=== PATIENT | female | born 1945 | race Caucasian/White ===

== ENCOUNTER 2020-08-15 17:35 | Outpatient (CLI) | payer MEDICARE, MEDICAID, SELFPAY ==
[2020-08-15 18:11] LABS: Alanine Aminotransferase 15 U/L (0-33); Albumin Level 4.2 g/dL (3.5-5.2); Alkaline Phosphatase 244 IU/L (35-105); Anion Gap 15.1 (5-19); Aspartate Amino Transferase 19 U/L (0-32); Blood Urea Nitrogen 16 mg/dL (8-23); Calcium 9.6 mg/dL (8.5-10.5); Carbon Dioxide 26 mmol/L (22-29); Chloride 102 mmol/L (98-107); Globulin 3.2 g/dL (1.3-4.6); Glucose 103 mg/dL (65-115); Osmolality Calculated 289 mOsm/kg (285-295); Potassium 4.1 mmol/L (3.5-5.1); Sodium 139 mmol/L (136-145); Total Bilirubin 0.3 mg/dL (0.15-1.2); Total Protein 7.4 g/dL (6.6-8.7)
== END 2020-08-15 17:36 | disposition home or self-care (01) ==
LOC: LAB 17:36
PROVIDERS: Family Provider Internal Medicine; PCP Nurse Practitioner; Visit Provider Internal Medicine
DX: E87.70 Fluid overload, unspecified (principal)
CPT/HCPCS: 80053

== ENCOUNTER 2021-01-04 06:17 | Inpatient (IN) | payer MEDICARE, MEDICAID, SELFPAY ==
[2021-01-04] VITALS (20 sets, daily range): BP systolic 71–124; BP diastolic 43–80; PULSE 66–98; RESP 16–21; TEMP 36.4–37.4; O2SAT 90–98; BMI 31.3
--- NOTE | 2021-01-04 06:25 | W.ED.GIBLEED ---
HPI - GI Bleed General: Chief complaint: GI Bleed Stated complaint: gi bleed Time Seen by Provider: 01/04/21 06:19 Source: EMS and old records reviewed Mode of arrival: EMS Limitations: altered mental status History of Present Illness: HPI Narrative: 75-year-old female, fpc patient with a history of advanced Alzheimer's dementia brought in by EMS after she had an episode of melanotic stool, and appeared pale and weak to the staff on duty. No reported history of GI bleed on her records. She is not on any anticoagulation. She does take meloxicam every day for arthritis. The patient is unable to provide any HPI. MD complaint: melena Associated symptoms: Reports chills Review of Systems General: Reports: ROS unobtainable due to mental status Const: Reports: chills PFSH ED PFSH: Medical History Asymptomatic COVID-19 virus infection Physical Exam Const: GENERAL APPEARANCE: lethargic, ill appearing and frail appearing; not diaphoretic NUTRITIONAL APPEARANCE: obese ORIENTATION/CONSCIOUSNESS: Yes awake and Yes lethargic; not oriented to person, not oriented to place and not oriented to time HENMT: COMMON NORMALS: normocephalic and atraumatic HEAD & SCALP: normocephalic and atraumatic FACE & SINUS: normal facial exam and face symmetric Eye: COMMON NORMALS: Equal, round and reactive pupils present, EOMs intact bilaterally and no scleral icterus CONJUNCTIVA: Yes conjunctival abnormal positive bilateral pallor PUPIL: Yes Equal, round and reactive pupils present Neck/C-Spine: COMMON NORMALS: full ROM and no lymphadenopathy Resp: COMMON NORMALS: normal respiratory effort and No use of accessory muscles EFFORT & INSPECTION: No tachypneic and No respiratory distress Cardio: COMMON NORMALS: regular rate, regular rhythm, S1 normal heart sound present and S2 normal heart sound present RATE: regular rate RHYTHM: regular rhythm HEART SOUNDS: S1 normal heart sound present and S2 normal heart sound present GI: COMMON NORMALS: Soft to palpation INSPECTION: No Abdominal wall edema, No Anasarca and No abdominal distension AUSCULTATION: Yes Hyperactive bowel sounds present PALPATION: Yes Soft to palpation, No Tenderness to palpation present (GI), No Guarding due to palpation present (GI) and No Rigid due to palpation Extremity: COMMON NORMALS: no clubbing, cyanosis or edema Neuro: SENSORIUM/ORIENTATION: No oriented to person, No oriented to place, No oriented to time and Yes lethargic Skin: COMMON NORMALS: no rashes or lesions noted and no wounds GENERAL SKIN EXAM: no rashes or lesions noted Course Vital Signs: Vital signs: Vital Signs Temperature 98.9 F 01/04/21 10:53 Pulse Rate 72 01/04/21 10:53 Respiratory Rate 16 01/04/21 10:53 Blood Pressure 106/43 01/04/21 10:53 Pulse Oximetry 95 01/04/21 10:53 MDM - GI Bleed MDM Narrative: Medical decision making narrative: 75-year-old female with melena, acute anemia requiring transfusion. Hemoglobin 5.5, hematocrit 17.8. INR normal. Small amount of grossly melanotic stool noted on exam. Initially she was hypotensive, 80s/ 50s, with a normal heart rate. Improved a little with first fluid bolus. Started IV Protonix, TXA, FFP, and blood transfusion?2 units Her urine suggested acute urinary tract infection although it may be somewhat contaminated. Will give a dose of IV Rocephin. Discussed the case with Dr. Thakur, she accepts the admission. Most recent blood pressure 106/43, heart rate 80, O2 sats 95% on room air. Differential Diagnosis: GI bleed differential diagnosis: Likely gastritis, Upper gastrointestinal hemorrhage and Lower gastrointestinal hemorrhage Medical Records: Attestation: I reviewed the patient's medical records. Lab Data: Attestation: I reviewed the patient's lab results. Labs: Lab Results 01/04/21 01/04/21 01/04/21 Range/Units 06:50 06:50 06:50 WBC 6.6 (4.0-10.0) 10^3/ uL RBC 1.69 L (4.1-5.3) 10^6/u L Hgb 5.5 L* (11.5-15.3) g/dL Hct 17.8 L* (37.0-47.0) % MCV 105.3 H (81-99) fL MCH 32.5 (28.0-34.0) pg MCHC 30.9 (30.0-36.0) g/dL RDW 16.5 H (12.1-15.1) % Plt Count 202 (130-400) 10^3/c mm MPV 11.1 H (7.4-10.4) fL Neut % (Auto) 79.4 % Lymph % (Auto) 14.0 % [place] % (Auto) 5.3 % Eos % (Auto) 0.2 % Baso % (Auto) 0.3 % Neut # (Auto) 5.21 (1.8-7.7) 10^3/u L Lymph # (Auto) 0.9 (0.8-4.8) 10^3/u L [place] # (Auto) 0.4 (0.2-0.9) 10^3/u L Eos # (Auto) 0.0 (0.0-0.8) 10^3/u L Baso # (Auto) 0.0 (0.0-0.1) 10^3/u L Nucleated RBC % (a uto) 0 % Nucleated RBCs # 0.0 /100WBC PT 15.20 H (12.1-14.9) SECO NDS INR 1.16 (0.8-1.2) Sodium 139 (136-145) mmol/L Potassium 4.7 (3.5-5.1) mmol/L Chloride 105 (98-107) mmol/L Carbon Dioxide 25 (22-29) mmol/L Anion Gap 13.7 (5-19) BUN 63 H (8-23) mg/dL Creatinine 0.6 (0.5-0.9) mg/dL GFR Calculation Not Reportable Glucose 142 H (65-115) mg/dL Calculated Osmolal ity 308 H (285-295) mOsm/k g Calcium 7.6 L (8.5-10.5) mg/dL Total Bilirubin 0.2 (0.15-1.2) mg/dL AST 10 (0-32) U/L ALT 8 (0-33) U/L Alkaline Phosphata se 121 H (35-105) IU/L NT-Pro-B Natriuret Pep 192 (0-450) pg/mL Total Protein 5.3 L (6.6-8.7) g/dL Albumin 2.8 L (3.5-5.2) g/dL Globulin 2.5 (1.3-4.6) g/dL Urine Color (Yellow) Urine Appearance (CLEAR) Urine pH (5-7) Ur Specific Gravit y (1.005-1.030) Urine Protein (Negative) Urine Glucose (UA) (Normal) Urine Ketones (Negative) Urine Blood (Negative) Urine Nitrate (Negative) Urine Bilirubin (Negative) Urine Urobilinogen (Negative) mg/dL Ur Leukocyte Ayla ase (Negative) Urine RBC (0-2) /hpf Urine WBC (0-5) /hpf Ur Squamous Epith Cells (0-5) /hpf Amorphous Sediment Urine Bacteria (NONE) /hpf Blood Type Rho(D) Type Antibody Screen Crossmatch 01/04/21 01/04/21 Range/Units 07:18 07:45 WBC (4.0-10.0) 10^3/ uL RBC (4.1-5.3) 10^6/u L Hgb (11.5-15.3) g/dL Hct (37.0-47.0) % MCV (81-99) fL MCH (28.0-34.0) pg MCHC (30.0-36.0) g/dL RDW (12.1-15.1) % Plt Count (130-400) 10^3/c mm MPV (7.4-10.4) fL Neut % (Auto) % Lymph % (Auto) % [place] % (Auto) % Eos % (Auto) % Baso % (Auto) % Neut # (Auto) (1.8-7.7) 10^3/u L Lymph # (Auto) (0.8-4.8) 10^3/u L [place] # (Auto) (0.2-0.9) 10^3/u L Eos # (Auto) (0.0-0.8) 10^3/u L Baso # (Auto) (0.0-0.1) 10^3/u L Nucleated RBC % (a uto) % Nucleated RBCs # /100WBC PT (12.1-14.9) SECO NDS INR (0.8-1.2) Sodium (136-145) mmol/L Potassium (3.5-5.1) mmol/L Chloride (98-107) mmol/L Carbon Dioxide (22-29) mmol/L Anion Gap (5-19) BUN (8-23) mg/dL Creatinine (0.5-0.9) mg/dL GFR Calculation Glucose (65-115) mg/dL Calculated Osmolal ity (285-295) mOsm/k g Calcium (8.5-10.5) mg/dL Total Bilirubin (0.15-1.2) mg/dL AST (0-32) U/L ALT (0-33) U/L Alkaline Phosphata se (35-105) IU/L NT-Pro-B Natriuret Pep (0-450) pg/mL Total Protein (6.6-8.7) g/dL Albumin (3.5-5.2) g/dL Globulin (1.3-4.6) g/dL Urine Color Straw (Yellow) Urine Appearance Sl hazy (CLEAR) Urine pH 5 (5-7) Ur Specific Gravit y 1.010 (1.005-1.030) Urine Protein Neg (Negative) Urine Glucose (UA) Norm (Normal) Urine Ketones Negative (Negative) Urine Blood 2+ H (Negative) Urine Nitrate Positive H (Negative) Urine Bilirubin Neg (Negative) Urine Urobilinogen Norm (Negative) mg/dL Ur Leukocyte Ayla ase Negative (Negative) Urine RBC 5-10 H (0-2) /hpf Urine WBC 15-25 H (0-5) /hpf Ur Squamous Epith Cells 5-10 H (0-5) /hpf Amorphous Sediment Not Reportable Urine Bacteria 3+ H (NONE) /hpf Blood Type A Positive Rho(D) Type Positive / 4+ Antibody Screen Negative Crossmatch See Detail Discharge Plan Discharge Patient Disposition: Admitted As Inpatient Clinical Impression: Upper gastrointestinal hemorrhage, Acute UTI, Anemia requiring transfusions Condition: Stable Coding Level of Care Code ED Take Up Supervisor for [facility] Fwd Exam Comprehensive
[2021-01-04 06:55] LABS: Basophils % 0.3 %; Eosinophils % 0.2 %; Lymphocytes # 0.9 10^3/uL (0.8-4.8); Mean Corpuscular HGB Conc 30.9 g/dL (30.0-36.0); Mean Corpuscular Hemoglobin 32.5 pg (28.0-34.0); Mean Corpuscular Volume 105.3 fL (81-99); Mean Platelet Volume 11.1 fL (7.4-10.4); Monocytes # 0.4 10^3/uL (0.2-0.9); Monocytes % 5.3 %; Neutrophils # 5.21 10^3/uL (1.8-7.7); Neutrophils % 79.4 %; Nucleated Red Blood Cells % 0 %; Platelet Count 202 10^3/cmm (130-400); Red Blood Count 1.69 10^6/uL (4.1-5.3); Red Cell Distribution Width 16.5 % (12.1-15.1); White Blood Count 6.6 10^3/uL (4.0-10.0)
[2021-01-04] MEDS: sodium chloride 0.9% 1,000 ML 50 ML IV (06:57)
[2021-01-04] MEDS: FUROsemide 10 mg/mL SDV 4mL 20 MG IVP (06:57)
[2021-01-04] MEDS: pantoprazole 40 mg SDV IVP ×2 (06:58→22:19)
[2021-01-04 07:02] LABS: INR 1.16 (0.8-1.2)
[2021-01-04 07:06] LABS: Hematocrit 17.8 % (37.0-47.0); Hemoglobin 5.5 g/dL (11.5-15.3)
[2021-01-04 07:16] LABS: Alanine Aminotransferase 8 U/L (0-33); Albumin Level 2.8 g/dL (3.5-5.2); Alkaline Phosphatase 121 IU/L (35-105); Anion Gap 13.7 (5-19); Aspartate Amino Transferase 10 U/L (0-32); Blood Urea Nitrogen 63 mg/dL (8-23); Calcium 7.6 mg/dL (8.5-10.5); Carbon Dioxide 25 mmol/L (22-29); Chloride 105 mmol/L (98-107); Globulin 2.5 g/dL (1.3-4.6); Glucose 142 mg/dL (65-115); NT Pro B Type Natriuretic Pept 192 pg/mL (0-450); Osmolality Calculated 308 mOsm/kg (285-295); Potassium 4.7 mmol/L (3.5-5.1); Sodium 139 mmol/L (136-145); Total Bilirubin 0.2 mg/dL (0.15-1.2); Total Protein 5.3 g/dL (6.6-8.7)
--- NOTE | 2021-01-04 07:20 | PC.NURSE ---
Type and cross submitted to lab
--- NOTE | 2021-01-04 08:12 | CT_ITS ---
WS: [id number] CT ABDOMEN PELVIS TECHNIQUE: Contrast-enhanced CT of the abdomen and pelvis with coronal and sagittal reformatted image s. CLINICAL INFORMATION: GI bleed, COMPARISON: None. DLP: 1857.[address] scans at [facility] use at least one of these dose optimization techniques: automat ed exposure control; mA and/or kV adjustment per patient size (includes targeted exams where dose is matched to clinical indication); or iterative reconstruction. FINDINGS: Mild diffuse fatty infiltration of the liver. Normal gallbladder. Normal portal vein and splenic vein . Low-attenuation left adrenal lesion likely adenoma measuring 2.1 CM. Small right adrenal nodule lik jenniffer adenoma measuring 8 mm. Slight atelectasis in the lung bases. Splenic granulomas. Normal GE junct ion. Small splenule. Bilateral renal cortical atrophy. No hydronephrosis. Small bilateral renal cysts . Fatty atrophy of the pancreas. Normal caliber abdominal aorta. Normal sigmoid colon. No evidence of high-grade small or large bowel obstruction. No free fluid in th e abdomen or pelvis. Wide mouth ventral abdominal wall hernia containing omental fat. No herniated dorina wel. No adenopathy in the abdomen or pelvis. Chronic anterior wedging at L1-2. CT/CT abdomen pelvis w con* [id number] IMPRESSION: 1. Mild diffuse fatty infiltration liver. 2. Normal sigmoid colon. No evidence of high-grade small or large obstruction. 3. No free fluid in the abdomen or pelvis. 4. Bilateral adrenal lesions larger on the left measuring 2.1 cm likely adenom a. 5. Bilateral renal cortical atrophy with small bilateral renal cysts. 6. No hydronephrosis in either kidney. 7. [place] ventral abdominal wall hernia containing omental fat. No herniate d bowel. Attempted notification Day Sheridan MD at 01/04/2021 9:20 AM.
[2021-01-04] MEDS: iohexol 300 mg/mL 100 mL Btl IV (08:36)
[2021-01-04 08:40] LABS: Add Urine Microscopic? YES; Bilirubin Urine Neg (Negative); Blood Urine 2+ (Negative); Glucose Urine UA Norm (Normal); Ketones Urine Negative (Negative); Leukocyte Esterase Urine Negative (Negative); Nitrate Urine Positive (Negative); Protein Urine Neg (Negative); Urine Appearance SL Hazy (CLEAR); Urine Color Straw (Yellow); Urobilinogen Urine Norm (Negative); pH Urine 5 (5-7)
[2021-01-04 08:41] LABS: Add Urine Culture? Yes; Bacteria Urine 3+ /hpf; WBC Urine 15-25 /hpf (0-5)
--- NOTE | 2021-01-04 09:16 | PC.NURSE ---
unable to scan plasma due to A not on label. Per Brisa2 override, plasma is correct for patient.
--- NOTE | 2021-01-04 12:24 | PM.HP ---
Providers/Chief Complaint Admitting Physician: Hannah Thakur MD Primary Care Provider: Ramsey David MD Chief Complaint: gi bleed History of Present Illness Linda Hughes is a 75 year old female with a past medical history as outlined below, longterm resident, advanced dementia, nonverbal at baseline, sent today from [facility] due to concern for GI bleed. Today patient was noted to have melanotic bowel movement. History is obtained by talking to the longterm nurse. She apparently also had a melanotic bowel movement sometime earlier this week as well. No hemoptysis. No noted complains of abdominal pain. She was sent over to the ER due to concern for GI bleed, hemoglobin here was noted to be 5.5 which is new. Patient unable to participate in any history is as a result of being nonverbal and advanced dementia. Review of home medication shows patient is on meloxicam daily. She has thus far received 1 unit of Ranexa, 40 mg of IV Protonix, 1 L of IV fluid, 1 unit of FFP and 2 units of packed red blood cell transfusion has been ordered. Blood pressure is systolic between 90-100, at longterm her systolic usually ranged between 100-1 25. She has been vaccinated for COVID-19, completed series 1 month ago., Not tested for COVID-19 routinely in the last 2 months. Review of system is otherwise unavailable due to dementia.She had covid 19 infection in August 2020, reportedly asymptomatic. Review of Systems General: Reports: ROS unobtainable due to medical condition Medications/Allergies Home Medications Medication Instructions Recorded Confirmed Last Taken Type acetaminophen 500 mg tablet 500 mg PO Q4H PRN tab 02/14/20 01/04/21 Unknown History bismuth subsalicylate 262 mg/15 mL 524 mg PO Q30M PRN 02/14/20 01/04/21 Unknown History oral suspension bismuth subsalicylate 262 mg/15 mL 524 mg PO Q30M PRN 02/14/20 01/04/21 Unknown History oral suspension cholecalciferol (vitamin D3) 1,250 1,250 mcg PO Q14D 02/14/20 01/04/21 Unknown History mcg (50,000 unit) capsule furosemide 40 mg tablet 40 mg PO DAILY@0800 02/14/20 01/04/21 Unknown History mecobalamin (vitamin B12) 1,000 1,000 mcg PO Q30D 02/14/20 01/04/21 Unknown History mcg chewable tablet melatonin 3 mg capsule 3 mg PO BEDTIME@1999 cap 02/14/20 01/04/21 Unknown History meloxicam 15 mg tablet 15 mg PO DAILY@0800 02/14/20 01/04/21 Unknown History memantine 10 mg tablet 10 mg PO BID@08,199902/14/20 01/04/21 Unknown History phenobarbital 64.8 mg tablet 64.8 mg PO TID 02/14/20 01/04/21 Unknown History potassium chloride 10 mEq 10 meq PO DAILY@0800 02/14/20 01/04/21 Unknown History capsule,extended release sertraline 50 mg tablet 50 mg PO DAILY@199902/14/20 01/04/21 Unknown History folic acid 1 mg PO BID@0800,199901/04/21 01/04/21 Unknown History Allergies Allergy/AdvReac Type Severity Reaction Status Date / Time lamotrigine Allergy Unknown Verified 01/04/21 10:58 primidone Allergy Unknown Verified 01/04/21 10:58 PFSH Acute PFSH: Medical History Alzheimer's dementia Asymptomatic COVID-19 virus infection Essential hypertension Social History (Updated 01/04/21 @ 12:29 by Hannah Thakur MD) Smoking and tobacco status: unknown if ever smoked Vitals/I&O/Wt Last Vital Signs Temp 98.7 F 01/04/21 11:37 Pulse 83 01/04/21 11:37 Resp 17 01/04/21 11:37 BP 97/46 01/04/21 11:37 Pulse Ox 97 01/04/21 11:37 01/03/21 01/04/21 01/04/21 22:59 06:59 14:59 Intake Total 205 / 205 Balance 205 / 205 Weight last 48 hrs Weight 90.718 kg Physical Exam Narrative: EXAM NARRATIVE: GEN: Asleep currently, non verbal CVS: S1S2 N RS: CTA B/L anteriorly Abd: Soft, nt/nd , bs+ CLINICAL INFORMATICIST: no focal neuro motor deficits grossly Data : 01/04/21 06:50 01/04/21 06:50 A&P Assessment and plan (1) Upper gastrointestinal hemorrhage: Hb 5.5, acute drop from previous Ordered for 2 units PRBC, recheck Hb after transfusion received 1 unit FFP and tranexa in ER start protonix 40mg IVP q12h General surgery consult with Dr. Mcneil placed from ER Status: Acute (2) Acute UTI: emprically on CTX due to positive UA, urine cx pending Status: Acute (3) Anemia requiring transfusions: 2 units PRBC ordered recheck H7H posts tranfusion and then q6h Status: Acute (4) Alzheimer's dementia: non verbal at baseline Status: Acute Qualifiers: Alzheimer's disease onset: unspecified onset Dementia behavioral disturbance: without behavioral disturbance Qualified Code(s): G30.9 - Alzheimer's disease, unspecified; F02.80 - Dementia in other diseases classified elsewhere without behavioral disturbance Additional A&P Information Above plan discussed with daughter who is at bedside, okay for UGIE if needed DNR/DNI Dispo: return to SNF DVt ppx: Scds Attestations Medical Necessity Statement*: UGI bleed, acute anemia requiringtransfusion, anticipate >2midnight admission Coding Level of Care Code Acute Health Informatics Specialist for [facility] Fwd Diagnoses Upper gastrointestinal hemorrhage K92.2 Acute UTI N39.0 Anemia requiring transfusions D64.9 Alzheimer's dementia G30.9; F02.80 Alzheimer's disease onset: unspecified onset Dementia behavioral disturbance: without behavioral disturbance
[2021-01-04] MEDS: cefTRIAXone 1,000 MG in sodium chloride 0.9% (plus) 50 ML 100 MG IV (14:37)
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
--- NOTE | 2021-01-04 19:37 | PC.NURSE ---
Patient is a resident at [facility]. Patient is unable to give any information. Patient has dementia and is bed bound and unable to follow commands. Assessment questions were completed by patient's daughter and power of lead oxide mill tender Lulu. Patient is incontinent of bowel and bladder. Report to Martine MURRAY at this time.
[2021-01-04 19:52] LABS: Hematocrit 21.2 % (37.0-47.0); Hemoglobin 6.7 g/dL (11.5-15.3)
[2021-01-04] MEDS: PHENobarbital 32.4 mg Tablet 64.8 MG PO (21:58)
[2021-01-04] MEDS: memantine 5 mg tablet 10 MG PO (21:58)
[2021-01-04] MEDS: sertraline 50 mg Tablet PO (21:58)
[2021-01-04] MEDS: folic acid 1 mg Tablet PO (21:58)
[2021-01-05] VITALS (21 sets, daily range): BP systolic 89–120; BP diastolic 47–72; PULSE 58–89; RESP 16–18; TEMP 36.6–38.2; O2SAT 92–99
[2021-01-05] MEDS: acetaminophen 325 mg Tablet 650 MG PO (01:25)
[2021-01-05] MEDS: diphenhydrAMINE 50 mg Capsule PO (01:25)
[2021-01-05] MEDS: sodium chloride 0.9% (100 ml) 100 ML (04:47)
[2021-01-05] MEDS: sodium chloride 0.9% 250 ML 999 ML IV (04:48)
--- NOTE | 2021-01-05 07:30 | PC.NURSE ---
Patient is NPO for a EGD this morning.
[2021-01-05 08:31] LABS: Basophils % 0.7 %; Eosinophils # 0.1 10^3/uL (0.0-0.8); Eosinophils % 1.1 %; Hematocrit 21.2 % (37.0-47.0); Hemoglobin 6.9 g/dL (11.5-15.3); Lymphocytes # 1.3 10^3/uL (0.8-4.8); Lymphocytes % 29.8 %; Mean Corpuscular HGB Conc 32.5 g/dL (30.0-36.0); Mean Corpuscular Volume 101.4 fL (81-99); Monocytes # 0.4 10^3/uL (0.2-0.9); Neutrophils # 2.62 10^3/uL (1.8-7.7); Neutrophils % 58.7 %; Nucleated Red Blood Cells % 0 %; Platelet Count 171 10^3/cmm (130-400); Red Blood Count 2.09 10^6/uL (4.1-5.3); White Blood Count 4.5 10^3/uL (4.0-10.0)
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
[2021-01-05 08:49] LABS: Alanine Aminotransferase 10 U/L (0-33); Albumin Level 2.9 g/dL (3.5-5.2); Alkaline Phosphatase 113 IU/L (35-105); Anion Gap 12.3 (5-19); Aspartate Amino Transferase 19 U/L (0-32); Blood Urea Nitrogen 33 mg/dL (8-23); Calcium 8.1 mg/dL (8.5-10.5); Carbon Dioxide 26 mmol/L (22-29); Chloride 111 mmol/L (98-107); Globulin 2.5 g/dL (1.3-4.6); Glucose 94 mg/dL (65-115); Osmolality Calculated 307 mOsm/kg (285-295); Potassium 4.3 mmol/L (3.5-5.1); Sodium 145 mmol/L (136-145); Total Bilirubin 0.3 mg/dL (0.15-1.2); Total Protein 5.4 g/dL (6.6-8.7)
--- NOTE | 2021-01-05 09:22 | PC.NURSE ---
Patient to GI Lab at this time.
[2021-01-05] MEDS: sodium chloride 0.9% 1,000 ML 30 ML IV (09:27)
--- NOTE | 2021-01-05 09:31 | P.PN_ITS ---
Subjective Subjective: Interval history: No reported events overnight. The patient remains essentially nonverbal. Vitals/I&O/Wt Last Vital Signs Temp 98.9 F 01/05/21 07:21 Pulse 60 01/05/21 08:02 Resp 17 01/05/21 07:21 BP 96/60 01/05/21 07:55 Pulse Ox 93 01/05/21 08:02 01/04/21 01/05/21 01/05/21 22:59 06:59 14:59 Intake Total 2035 Balance 2035 Weight last 48 hrs Weight 200 lb Physical Exam Narrative: EXAM NARRATIVE: Abdomen remains soft. The patient's ventral hernia adjacent to the umbilicus remains nontender but nonreducible. Data : 01/05/21 08:20 01/05/21 08:20 Micro: Microbiology 01/04/21 07:45 Urine Culture - Preliminary Urine,Clean Catch Gram Negative Rods A&P Assessment and plan (1) Melena: The patient has been reported to have at least 2 melanotic stools over the past several days. Status: Acute (2) Anemia requiring transfusions: Patient's hemoglobin level is improved following transfusions. EGD this morning. Status: Acute (3) NSAID long-term use: The patient reportedly had been taking meloxicam daily. Status: Acute (4) Incarcerated ventral hernia: It does not appear that this hernia adjacent to the umbilicus is symptomatic for the patient. My understanding is the daughter does not really want to proceed with any unnecessary procedures for her. It seems that it will be a reasonable approach to just watch this for now. Status: Acute Attestations Medical Necessity Statement*: See admitting service's notation. 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
--- NOTE | 2021-01-05 09:45 | ANE.PACU2 ---
Inpatient post-anesthesia follow up: Airway intact: Yes Vital signs: Temperature 98.9 F Pulse Rate [Monito r] 82 Pulse Rate 60 Respiratory Rate 17 Blood Pressure [Ri ght Arm] 71/58 Blood Pressure 96/60 Pulse Oximetry 93 Oxygen Delivery Me thod [ Room Air Current Rate & Del melonie] Oxygen Delivery Me thod Room Air Oxygen Flow Rate Fraction of Inspir ed Oxygen Hydration adequate: Yes Nausea and vomiting: No Pain level: 1 Mental status: Baseline
--- NOTE | 2021-01-05 10:12 | ANE.PACU2 ---
Inpatient post-anesthesia follow up: Airway intact: Yes Vital signs: Temperature 99.0 F Pulse Rate [Monito r] 82 Pulse Rate 61 Respiratory Rate 18 Blood Pressure [Ri ght Arm] 71/58 Blood Pressure 100/53 Pulse Oximetry 99 Oxygen Delivery Me thod [ Room Air Current Rate & Del melonie] Oxygen Delivery Me thod Room Air Oxygen Flow Rate 3 Fraction of Inspir ed Oxygen Hydration adequate: Yes Nausea and vomiting: No Pain level: 1 Mental status: Baseline
--- NOTE | 2021-01-05 10:24 | PC.NURSE ---
Patient returned to room at this time.
[2021-01-05] MEDS: sodium chloride 0.9% 1,000 ML 50 ML IV (16:09)
[2021-01-05] MEDS: cefTRIAXone 1,000 MG in sodium chloride 0.9% (plus) 50 ML 100 MG IV (16:13)
--- NOTE | 2021-01-05 17:33 | PC.NURSE ---
Once patient is able to eat she will be a feeder. She is unable to feed herself per her niece Lulu.
--- NOTE | 2021-01-05 17:35 | PC.NURSE ---
Per Dr. Odonnell patient should be clear liquids until breakfast the morning of 01/06/21 and then advance from there to full and then regular from there.
--- NOTE | 2021-01-05 17:38 | PM.PN ---
Subjective Subjective: Interval history: Patient sitting up in bed being fed a clear liquid diet. She answers yes no to questions. And offered to spoon for [place] ice she took the spoon in place to down. She said no to pain except with palpation of lower extremities. Medications: Reviewed: Yes Vitals/I&O/Wt Last Vital Signs Temp 98.7 F 01/05/21 15:55 Pulse 62 01/05/21 15:55 Resp 16 01/05/21 15:55 BP 114/56 01/05/21 15:55 Pulse Ox 93 01/05/21 15:55 01/05/21 01/05/21 01/05/21 06:59 14:59 22:59 Intake Total 2035 / 1 200 / 200 50 / 250 Balance 2035 200 / 200 50 / 250 Weight last 48 hrs Weight 90.718 kg Physical Exam Narrative: EXAM NARRATIVE: General patient sitting in bed smiling she is obese appears comfortable no acute distress' pale appearing Heart: Distant heart sounds no loud murmur auscultated Lungs: Clear to auscultation Abdomen: Obese soft nontender nondistended positive umbilical hernia present Extremities trace lower extremity edema. Data : 01/05/21 08:20 01/05/21 08:20 Micro: Microbiology 01/04/21 07:45 Urine Culture - Preliminary Urine,Clean Catch Gram Negative Rods A&P Assessment and plan (1) Upper gastrointestinal hemorrhage: stop NSAIDs. PPI bid for 2 months total then qday Status: Acute (2) Alzheimer's dementia: probably no longer gains benefit from memantine however may be keeping her relatively stable. Will continue Status: Acute Qualifiers: Alzheimer's disease onset: unspecified onset Dementia behavioral disturbance: without behavioral disturbance Qualified Code(s): G30.9 - Alzheimer's disease, unspecified; F02.80 - Dementia in other diseases classified elsewhere without behavioral disturbance (3) Essential hypertension: I actually do not see an antihypertensive on her home list. Status: Acute (4) NSAID long-term use: Will need to discontinue indefinetly Status: Acute (5) Anemia requiring transfusions: received 2 units PBC and 2 of plasma. stop fluids and recheck in am Status: Acute (6) Gastritis and duodenitis: as above Status: Acute (7) Acute UTI: gram negative rods. Currently on CTX. Awaiting final report. Status: Acute Attestations Medical Necessity Statement*: severe anemia Coding Level of Care Code Acute An/Syq 13 Nav/C2 Operator for g Fwd Diagnoses Upper gastrointestinal hemorrhage K92.2 Alzheimer's dementia G30.9; F02.80 Alzheimer's disease onset: unspecified onset Dementia behavioral disturbance: without behavioral disturbance Essential hypertension I10 NSAID long-term use Z79.1 Anemia requiring transfusions D64.9 Gastritis and duodenitis K29.90 Acute UTI N39.0
--- NOTE | 2021-01-05 19:40 | PC.NURSE ---
Report to lElen MURRAY at this time.
[2021-01-05] MEDS: folic acid 1 mg Tablet PO (21:06)
[2021-01-05] MEDS: memantine 5 mg tablet 10 MG PO (21:06)
[2021-01-05] MEDS: sertraline 50 mg Tablet PO (21:07)
[2021-01-05] MEDS: PHENobarbital 32.4 mg Tablet 64.8 MG PO (22:39)
[2021-01-05] MEDS: pantoprazole 40 mg SDV IVP (22:40)
[2021-01-05] MEDS: erythromycin Op Oint 1 gm 1 APPLIC EYE-LEFT (22:40)
[2021-01-06] VITALS (9 sets, daily range): BP systolic 87–123; BP diastolic 49–66; PULSE 56–94; RESP 16–18; TEMP 36.3–37.1; O2SAT 91–98
[2021-01-06 06:56] LABS: Basophils % 0.8 %; Eosinophils # 0.1 10^3/uL (0.0-0.8); Eosinophils % 1.9 %; Hematocrit 23.5 % (37.0-47.0); Hemoglobin 7.5 g/dL (11.5-15.3); Lymphocytes # 1.3 10^3/uL (0.8-4.8); Lymphocytes % 27.8 %; Mean Corpuscular HGB Conc 31.9 g/dL (30.0-36.0); Mean Corpuscular Hemoglobin 33.3 pg (28.0-34.0); Mean Corpuscular Volume 104.4 fL (81-99); Monocytes # 0.5 10^3/uL (0.2-0.9); Monocytes % 10.2 %; Neutrophils # 2.82 10^3/uL (1.8-7.7); Neutrophils % 58.5 %; Nucleated Red Blood Cells % 0.4 %; Platelet Count 177 10^3/cmm (130-400); Red Blood Count 2.25 10^6/uL (4.1-5.3); Red Cell Distribution Width 17.8 % (12.1-15.1); White Blood Count 4.8 10^3/uL (4.0-10.0)
[2021-01-06 07:36] LABS: Anion Gap 11.6 (5-19); Blood Urea Nitrogen 22 mg/dL (8-23); Calcium 8.3 mg/dL (8.5-10.5); Carbon Dioxide 25 mmol/L (22-29); Chloride 110 mmol/L (98-107); Glucose 95 mg/dL (65-115); Osmolality Calculated 299 mOsm/kg (285-295); Potassium 3.6 mmol/L (3.5-5.1); Sodium 143 mmol/L (136-145)
[2021-01-06] MEDS: memantine 5 mg tablet 10 MG PO ×2 (08:48→21:17)
[2021-01-06] MEDS: folic acid 1 mg Tablet PO ×2 (08:48→21:18)
[2021-01-06] MEDS: PHENobarbital 32.4 mg Tablet 64.8 MG PO ×3 (08:48→21:18)
[2021-01-06] MEDS: erythromycin Op Oint 1 gm 1 APPLIC EYE-LEFT ×4 (08:49→22:07)
[2021-01-06] MEDS: pantoprazole 40 mg SDV IVP ×2 (09:37→22:06)
--- NOTE | 2021-01-06 12:23 | PC.NURSE ---
1:1 1:1 at pts side to prevent pulling of any lines
[2021-01-06] MEDS: cefTRIAXone 1,000 MG in sodium chloride 0.9% (plus) 50 ML 100 MG IV (14:15)
--- NOTE | 2021-01-06 18:43 | P.DS_ITS ---
Discharge Providers Date of Admission: 01/04/21 10:42 Date of Discharge: January 06, 2021 Attending Provider at Admission: Hannah Thakur MD Attending Provider at Discharge: Kartik Odonnell DO Primary Care Provider: Ramsey David MD Diagnoses at Discharge Discharge Diagnosis (1) Upper gastrointestinal hemorrhage: Status: Acute (2) Alzheimer's dementia: Status: Acute Qualifiers: Alzheimer's disease onset: unspecified onset Dementia behavioral disturbance: without behavioral disturbance Qualified Code(s): G30.9 - Alzheimer's disease, unspecified; F02.80 - Dementia in other diseases classified elsewhere without behavioral disturbance (3) Essential hypertension: Status: Acute (4) NSAID long-term use: Status: Acute (5) Anemia requiring transfusions: Status: Acute (6) Gastritis and duodenitis: Status: Acute (7) Acute UTI: Status: Acute Reason for Visit Reason for Visit: gi bleed Hospital Course Hospital Course Patient was admitted due to GI bleed. Was found to have gastritis and duodenitis. She required transfusions. After EGD she was started on a clear liquid diet did well. Hemoglobin has increased to 7.5. She is to be continued on proton pump inhibitors for 2 months at twice a day dosing. It is believed that her chronic NSAIDs are the culprit to this type of bleeding. Her meloxicam was discontinued and should not be restarted. After 2 months of therapy with PPIs they can be discontinued as long as no NSAIDs are given. Physical Exam Narrative: EXAM NARRATIVE: General patient sitting in bed smiling she is obese appears comfortable no acute distress' pale appearing Heart: Distant heart sounds no loud murmur auscultated Lungs: Clear to auscultation Abdomen: Obese soft nontender nondistended positive umbilical hernia present Extremities trace lower extremity edema. Discharge Data Data Completed and Pending: Completed Studies During Hospitalization Category Date Time Status CT abdomen pelvis w con* [id number] Urge nt Cat Scan 01/04/21 08:12 Completed Pending at discharge Category Date Time Status Complete Blood Co unt w/Auto AM LABS Lab 01/07/21 04:00 Ordered H. Pylori / GRACE T est Routine Lab 01/05/21 09:45 Ordered Labs from last 24 hours 01/06/21 01/06/21 06:40 06:40 WBC 4.8 RBC 2.25 L Hgb 7.5 L Hct 23.5 L MCV 104.4 H MCH 33.3 MCHC 31.9 RDW 17.8 H Plt Count 177 MPV 11.0 H Neut % (Auto) 58.5 Lymph % (Auto) 27.8 [place] % (Auto) 10.2 Eos % (Auto) 1.9 Baso % (Auto) 0.8 Neut # (Auto) 2.82 Lymph # (Auto) 1.3 [place] # (Auto) 0.5 Eos # (Auto) 0.1 Baso # (Auto) 0.0 Nucleated RBC % (a uto) 0.4 Nucleated RBCs # 0.0 Sodium 143 Potassium 3.6 Chloride 110 H Carbon Dioxide 25 Anion Gap 11.6 BUN 22 Creatinine 0.4 L GFR Calculation Not Reportable Glucose 95 Calculated Osmolal ity 299 H Calcium 8.3 L Vitals: Last Vital Signs Temp 97.9 F 01/06/21 15:30 Pulse 67 01/06/21 15:30 Resp 17 01/06/21 15:30 BP 110/65 01/06/21 15:30 Pulse Ox 93 01/06/21 15:30 Discharge Plan Discharge Patient Disposition: Home Condition: Stable Prescriptions: New erythromycin 5 mg/gram (0.5 %) Ointment 1 applic eye-left QID 10 Days RF: 0 amoxicillin-pot clavulanate [Augmentin] 500-125 mg tablet 1 tab PO BID Qty: 10 RF: 0 pantoprazole [Protonix] 40 mg tablet,delayed release (DR/EC) 40 mg PO BID Qty: 60 RF: 0 Continued meloxicam 15 mg tablet 15 mg PO DAILY@0800 RF: 0 potassium chloride 10 mEq capsule, extended release 10 meq PO DAILY@0800 RF: 0 furosemide [Lasix] 40 mg tablet 40 mg PO DAILY@0800 RF: 0 memantine [Namenda] 10 mg tablet 10 mg PO BID@799,1999 RF: 0 acetaminophen [Tylenol Extra Strength] 500 mg tablet 500 mg PO Q4H PRN (Reason: Pain) RF: 0 phenobarbital 64.8 mg tablet 64.8 mg PO TID RF: 0 sertraline [Zoloft] 50 mg tablet 50 mg PO DAILY@1999 RF: 0 melatonin 3 mg capsule 3 mg PO BEDTIME@1999 RF: 0 cholecalciferol (vitamin D3) 1,250 mcg (50,000 unit) capsule 1,250 mcg PO Q14D RF: 0 mecobalamin (vitamin B12) 1,000 mcg tablet,chewable 1,000 mcg PO Q30D RF: 0 bismuth subsalicylate [Bismatrol] 262 mg/15 mL suspension 524 mg PO Q30M PRN (Reason: Nausea) RF: 0 bismuth subsalicylate [Kaopectate (bismuth subsalicy)] 262 mg/15 mL suspension 524 mg PO Q30M PRN (Reason: loose stools) RF: 0 folic acid 1 mg Tablet 1 mg PO BID@0800,1999 RF: 0 Discharge Orders: Discharge Order (Routine); Ordered 01/06/21 Ordered By: Kartik Odonnell Referrals: Ramsey David MD [Primary Care Provider] - Discharge Diet: Advance as tolerated Discharge Activity: Resume usual activity and Increase activity as tolerated Patient Instructions: GI Discharge Instructions Discharge Attestations Time Spent in Discharge Care*: less than 30 min Quality Metrics Clinical Quality Measures During this hospital stay, did patient experience: None Coding Level of Care Code Acute [facility] note Diagnoses Upper gastrointestinal hemorrhage K92.2 Alzheimer's dementia G30.9; F02.80 Alzheimer's disease onset: unspecified onset Dementia behavioral disturbance: without behavioral disturbance Essential hypertension I10 NSAID long-term use Z79.1 Anemia requiring transfusions D64.9 Gastritis and duodenitis K29.90 Acute UTI N39.0
[2021-01-06] MEDS: sertraline 50 mg Tablet PO (21:18)
[2021-01-07] VITALS: BP 103/69; PULSE 59; RESP 16; TEMP 37.1; O2SAT 91
[2021-01-07 04:00] VITALS: BP 109/63; PULSE 56; RESP 17; TEMP 36.4; O2SAT 92
[2021-01-07 07:17] LABS: Basophils % 0.6 %; Eosinophils # 0.1 10^3/uL (0.0-0.8); Eosinophils % 1.4 %; Hematocrit 26.3 % (37.0-47.0); Hemoglobin 7.4 g/dL (11.5-15.3); Lymphocytes # 0.9 10^3/uL (0.8-4.8); Lymphocytes % 18.2 %; Mean Corpuscular HGB Conc 28.1 g/dL (30.0-36.0); Mean Corpuscular Volume 117.4 fL (81-99); Mean Platelet Volume 11.1 fL (7.4-10.4); Monocytes # 0.5 10^3/uL (0.2-0.9); Monocytes % 8.8 %; Neutrophils % 70.6 %; Nucleated Red Blood Cells % 0 %; Platelet Count 180 10^3/cmm (130-400); Red Blood Count 2.24 10^6/uL (4.1-5.3); Red Cell Distribution Width 17.9 % (12.1-15.1); White Blood Count 5.1 10^3/uL (4.0-10.0)
[2021-01-07 07:20] VITALS: BP 116/65; PULSE 62; RESP 18; TEMP 36.5; O2SAT 94
--- NOTE | 2021-01-07 08:11 | DCPLANNER ---
Phoned Erlin; Lulu RiveraFranck [phone] to discuss the IM and to ask if she knew pt was being d/c'd. She does as she called yesterday to talk with Nursing. She is satisfied that pt is ready for d/c.
[2021-01-07] MEDS: memantine 5 mg tablet 10 MG PO (08:58)
[2021-01-07] MEDS: folic acid 1 mg Tablet PO (08:58)
[2021-01-07] MEDS: pantoprazole 40 mg SDV IVP (08:58)
[2021-01-07] MEDS: erythromycin Op Oint 1 gm 1 APPLIC EYE-LEFT (08:58)
[2021-01-07] MEDS: PHENobarbital 32.4 mg Tablet 64.8 MG PO (08:58)
--- NOTE | 2021-01-07 10:59 | PC.NURSE ---
Report Report called to Yolande at [facility]. SS notified and ride being set up.
[2021-01-07 12:00] VITALS: BP 109/60; PULSE 52; RESP 18; TEMP 37.1; O2SAT 95
[2021-01-07 13:19] VITALS: BP 109/60; PULSE 52; RESP 18; TEMP 37.1; O2SAT 95
[2021-01-07 13:45] LABS: H. Pylori / CLO Test Negative
== END 2021-01-07 13:19 | disposition skilled nursing facility (03) | DRG 392 ==
LOC: ER 14:20 → MEDSURG 15:59
PROVIDERS: Internal Medicine; Surgery; Admitting Provider Student in an Organized Health Care Education/Training Program; Emergency Provider Family Medicine; PCP Internal Medicine; Visit Provider Student in an Organized Health Care Education/Training Program
PROC: 0DJ08ZZ Inspection of Upper Intestinal Tract, Via Natural or Artificial Opening Endoscopic (ICD-10-PCS; CPT 43235; principal; 2021-01-05 09:00)
DX: K29.90 Gastroduodenitis, unspecified, without bleeding (principal); N39.0 Urinary tract infection, site not specified; K43.6 Other and unspecified ventral hernia with obstruction, without gangrene; T39.395A Adverse effect of other nonsteroidal anti-inflammatory drugs [NSAID], initial encounter; G30.9 Alzheimer's disease, unspecified; F02.80 Dementia in other diseases classified elsewhere, unspecified severity, without behavioral disturbance, psychotic disturbance, mood disturbance, and anxiety; Z86.16 Personal history of COVID-19; I10 Essential (primary) hypertension; D64.9 Anemia, unspecified; Z66 Do not resuscitate
CPT/HCPCS: 12345; 36415; 36430; 43239; 74177; 80048; 80053; 81001; 83880; 85014; 85018; 85025; 85610; 86850; 86900; 86920; 86927; 87077; 87086; 87186; 96365; 96367; 96375; 99291; 99292; C9113; J0696; J1940; J2704; J7030; J7040; P9016; P9017; Q0163; Q9967

== ENCOUNTER 2021-01-10 07:14 | Inpatient (IN) | payer MEDICARE, MEDICAID, SELFPAY ==
[2021-01-10] VITALS (74 sets, daily range): BP systolic 46–124; BP diastolic 37–91; PULSE 71–118; RESP 12–31; TEMP 36.2–37.1; O2SAT 81–100; BMI 30.1
--- NOTE | 2021-01-10 07:23 | ECG_ITS ---
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 Measurements Intervals Miracle Rate: 98 P: 64 OR: 155 QRS: 28 QRSD: 93 T: 33 QT: 363 QTc: 464 Interpretive Statements Atrial fibrillation with controlled ventricular response rate of 98 bpm. Diffuse nonspecific T wave changes. POSSIBLE RIGHT VENTRICULAR CONDUCTION DELAY [RSR (QR) IN V1/V2] ST DEVIATION AND MODERATE T-WAVE ABNORMALITY, CONSIDER LATERAL ISCHEMIA [-0.1+ mV T WAVE IN I/aVL/V5/V6] Compared to ECG 12/17/2017 12:13:30 No significant changes Electronically Signed On 01-10-2021 20:36:26 CDT by Rene Smiley M.D. [email or web address]
--- NOTE | 2021-01-10 07:35 | W.ED.GIBLEED ---
HPI - GI Bleed General: Chief complaint: GI Bleed Stated complaint: LOWER GI BLEED/ HYPOTENSION Time Seen by Provider: 01/10/21 07:17 History of Present Illness: HPI Narrative: This patient is a 75 year old female presenting by EMS from a [facility]. She is reported to have BRBPR starting this morning, and was very hypotensive. She was here in the hospital within the past week with an UGI - gastritis and duodenitis. She required multiple transfusions and was discharged a few days ago with a hgb of 7.5. She has dementia and is not able to provide any history. She tells me she is fine, but does admit to pain in her abdomen. She presents with an adult diaper saturated with blood. BP at the ME and for EMS was 60 systolic. Her initial BP here, after 200 mL fluid, was 83 systolic. She is a DNR. Her niece, Alesha King (sp?) [phone] is her POA per report from the ME. complaint: gross hematochezia Onset (ago): unknown Severity: severe Context: history of GI bleed Review of Systems General: Reports: ROS unobtainable due to mental status (dementia) PFS ED PFSH: Medical History Alzheimer's dementia Anemia requiring transfusions Asymptomatic COVID-19 virus infection Essential hypertension Incarcerated ventral hernia Melena NSAID long-term use Seizure disorder Upper gastrointestinal hemorrhage Surgical History Burn injury History of ankle surgery Left ankle fracture Status post wrist surgery Social History Smoking and tobacco status: never smoked Alcohol intake: never Physical Exam Const: COMMON NORMALS: no acute distress and alert EXAM LIMITATIONS: other limitations (dementia) NUTRITIONAL APPEARANCE: obese ORIENTATION/CONSCIOUSNESS: Yes awake OTHER: minimal verbalization HENMT: HEAD & SCALP: normal to inspection FACE & SINUS: normal facial exam Eye: COMMON NORMALS: conjunctivae normal (pale) GENERAL EYE: appearance normal, both eyes and all related structures Neck/C-Spine: COMMON NORMALS: supple, no meningeal signs and no JVD Chest: COMMONS NORMALS: normal inspection of the chest Resp: COMMON NORMALS: normal respiratory effort, No use of accessory muscles and clear to auscultation bilaterally AUSCULTATION: clear to auscultation bilaterally Cardio: COMMON NORMALS: no JVD, regular rate, regular rhythm and No murmurs present (Cardio) RATE: regular rate RHYTHM: regular rhythm GI: COMMON NORMALS: Soft to palpation INSPECTION: Yes central obesity and Yes other (umbilical hernia,reducible) AUSCULTATION: Yes normoactive bowel sounds PALPATION: Yes Soft to palpation, Yes Firmness to palpation present (GI), Yes Tenderness to palpation present (GI) and Yes Palpable mass present (question of a mass, lower abdomen) RECTAL EXAM: deferred OTHER: gross blood - saturated diaper Back/Pelvis: COMMON NORMALS: thoracic and lumbar spine normal to inspection Extremity: COMMON NORMALS: normal to inspection Neuro: COMMON NORMALS: moves all extremities, no focal motor deficits and no sensory deficits noted SENSORIUM/ORIENTATION: Yes alert MENINGEAL SIGNS: Yes no meningeal signs Psych: COMMON NORMALS: mental status grossly normal, cooperative and normal affect Skin: COMMON NORMALS: no rashes or lesions noted and turgor normal GENERAL SKIN EXAM: no rashes or lesions noted and turgor normal Course ED course: Patient arrived hypotensive, but awake. She smiles and is in no acute distress. Uncrossmatched units of A+ were given as her BP dropped into the 50's and she vomited bright red blood. She also was given 2 units of FFP and two more units of crossmatched blood are pending. BP is now 90 - 100 and HR is 80. Erlin is at the bedside and does feel that it would be appropriate to try to find and correct the source of bleeding. On her last admission she had an EGD, but it sounds as though only gastritis and duodenitis were seen, but not any site of bleeding that would account for this amount of blood. Erlin is her POA and is agreeable to transfer if that is recommended. She is not sure that the patient should undergo a major surgery - if that were necessary - but she also isn't ready to make that decision right now. Patient was also given calcium as her calcium was low and she will be getting more blood products. Pepcid IV given as well. Beal in place with very minimal output so far. Rectal tube in place as well. I spoke with Dr. Kwan who wants to make sure that surgery is comfortable managing her here or would recommend transfer. Reevaluation(s): Reevaluation #1: Patient's BP dropped again and her mental status decreased. The 3rd unit of blood was started and she had some improvement, but is quite unstable. Niece at bedside and in consultation with her family by phone - decided that they did not wish to have her transferred even if that were the recommendation. Dr. Leggett will see her and decide if EGD is an option - given her instability at this point. Continuing blood products and Dr. Kwan will admit to ICU. Time: 10:58 Vital Signs: Vital signs: Vital Signs Temperature 97.2 F L 01/10/21 10:10 Pulse Rate 86 01/10/21 10:30 Respiratory Rate 27 H 01/10/21 10:30 Blood Pressure 80/60 01/10/21 10:30 Pulse Oximetry 100 01/10/21 10:30 MDM - GI Bleed MDM Narrative: Medical decision making narrative: Hemorrhagic shock secondary to massive GI bleed. No blood thinner medications listed. History of recent UGI bleed and transfusions. Hypotensive. Secondary cardiac ischemia possible. Lab Data: Labs: Lab Results 01/10/21 01/10/21 01/10/21 Range/Units 07:30 07:30 07:30 WBC 7.0 (4.0-10.0) 10^3/ uL RBC 1.62 L (4.1-5.3) 10^6/u L Hgb 5.3 L* (11.5-15.3) g/dL Hct 17.7 L* (37.0-47.0) % MCV 109.3 H (81-99) fL MCH 32.7 (28.0-34.0) pg MCHC 29.9 L (30.0-36.0) g/dL RDW 18.5 H (12.1-15.1) % Plt Count 179 (130-400) 10^3/c mm MPV 12.1 H (7.4-10.4) fL Neut % (Auto) 80.1 % Lymph % (Auto) 13.5 % Clayton % (Auto) 5.0 % Eos % (Auto) 0.1 % Baso % (Auto) 0.4 % Neut # (Auto) 5.63 (1.8-7.7) 10^3/u L Lymph # (Auto) 1.0 (0.8-4.8) 10^3/u L Clayton # (Auto) 0.4 (0.2-0.9) 10^3/u L Eos # (Auto) 0.0 (0.0-0.8) 10^3/u L Baso # (Auto) 0.0 (0.0-0.1) 10^3/u L Nucleated RBC % (a uto) 0 % Nucleated RBCs # 0.0 /100WBC PT (12.1-14.9) SECO NDS INR (0.8-1.2) Sodium 143 (136-145) mmol/L Potassium 4.2 (3.5-5.1) mmol/L Chloride 112 H (98-107) mmol/L Carbon Dioxide 23 (22-29) mmol/L Anion Gap 12.2 (5-19) BUN 30 H (8-23) mg/dL Creatinine 0.7 (0.5-0.9) mg/dL GFR Calculation Not Reportable Glucose 148 H (65-115) mg/dL Calculated Osmolal ity 305 H (285-295) mOsm/k g Lactic Acid 1.8 (0.5-2.2) mmol/L Calcium 7.2 L (8.5-10.5) mg/dL Total Bilirubin 0.2 (0.15-1.2) mg/dL AST 12 (0-32) U/L ALT 11 (0-33) U/L Alkaline Phosphata se 130 H (35-105) IU/L Troponin T Baselin e (0-10) ng/L Troponin T 120 Min wilton (0-10) ng/L Delta Troponin T (0-10) ABS# Total Protein 4.6 L (6.6-8.7) g/dL Albumin 2.6 L (3.5-5.2) g/dL Globulin 2.0 (1.3-4.6) g/dL Lipase 19 (13-60) U/L Urine Color (Yellow) Urine Appearance (CLEAR) Urine pH (5-7) Ur Specific Gravit y (1.005-1.030) Urine Protein (Negative) Urine Glucose (UA) (Normal) Urine Ketones (Negative) Urine Blood (Negative) Urine Nitrate (Negative) Urine Bilirubin (Negative) Urine Urobilinogen (Negative) mg/dL Ur Leukocyte Ayla ase (Negative) Urine RBC (0-2) /hpf Urine WBC (0-5) /hpf Ur Squamous Epith Cells (0-5) /hpf Amorphous Sediment Urine Bacteria (NONE) /hpf Urine Mucus /hpf Blood Type Rho(D) Type Antibody Screen Crossmatch 01/10/21 01/10/21 01/10/21 Range/Units 07:30 07:30 08:00 WBC (4.0-10.0) 10^3/ uL RBC (4.1-5.3) 10^6/u L Hgb (11.5-15.3) g/dL Hct (37.0-47.0) % MCV (81-99) fL MCH (28.0-34.0) pg MCHC (30.0-36.0) g/dL RDW (12.1-15.1) % Plt Count (130-400) 10^3/c mm MPV (7.4-10.4) fL Neut % (Auto) % Lymph % (Auto) % Clayton % (Auto) % Eos % (Auto) % Baso % (Auto) % Neut # (Auto) (1.8-7.7) 10^3/u L Lymph # (Auto) (0.8-4.8) 10^3/u L Clayton # (Auto) (0.2-0.9) 10^3/u L Eos # (Auto) (0.0-0.8) 10^3/u L Baso # (Auto) (0.0-0.1) 10^3/u L Nucleated RBC % (a uto) % Nucleated RBCs # /100WBC PT 16.60 H (12.1-14.9) SECO NDS INR 1.29 H (0.8-1.2) Sodium (136-145) mmol/L Potassium (3.5-5.1) mmol/L Chloride (98-107) mmol/L Carbon Dioxide (22-29) mmol/L Anion Gap (5-19) BUN (8-23) mg/dL Creatinine (0.5-0.9) mg/dL GFR Calculation Glucose (65-115) mg/dL Calculated Osmolal ity (285-295) mOsm/k g Lactic Acid (0.5-2.2) mmol/L Calcium (8.5-10.5) mg/dL Total Bilirubin (0.15-1.2) mg/dL AST (0-32) U/L ALT (0-33) U/L Alkaline Phosphata se (35-105) IU/L Troponin T Baselin e 41 H (0-10) ng/L Troponin T 120 Min wilton (0-10) ng/L Delta Troponin T (0-10) ABS# Total Protein (6.6-8.7) g/dL Albumin (3.5-5.2) g/dL Globulin (1.3-4.6) g/dL Lipase (13-60) U/L Urine Color (Yellow) Urine Appearance (CLEAR) Urine pH (5-7) Ur Specific Gravit y (1.005-1.030) Urine Protein (Negative) Urine Glucose (UA) (Normal) Urine Ketones (Negative) Urine Blood (Negative) Urine Nitrate (Negative) Urine Bilirubin (Negative) Urine Urobilinogen (Negative) mg/dL Ur Leukocyte Ayla ase (Negative) Urine RBC (0-2) /hpf Urine WBC (0-5) /hpf Ur Squamous Epith Cells (0-5) /hpf Amorphous Sediment Urine Bacteria (NONE) /hpf Urine Mucus /hpf Blood Type A Positive Rho(D) Type Positive / 4+ Antibody Screen Negative Crossmatch See Detail 01/10/21 01/10/21 Range/Units 09:14 09:38 WBC (4.0-10.0) 10^3/ uL RBC (4.1-5.3) 10^6/u L Hgb (11.5-15.3) g/dL Hct (37.0-47.0) % MCV (81-99) fL MCH (28.0-34.0) pg MCHC (30.0-36.0) g/dL RDW (12.1-15.1) % Plt Count (130-400) 10^3/c mm MPV (7.4-10.4) fL Neut % (Auto) % Lymph % (Auto) % Clayton % (Auto) % Eos % (Auto) % Baso % (Auto) % Neut # (Auto) (1.8-7.7) 10^3/u L Lymph # (Auto) (0.8-4.8) 10^3/u L Clayton # (Auto) (0.2-0.9) 10^3/u L Eos # (Auto) (0.0-0.8) 10^3/u L Baso # (Auto) (0.0-0.1) 10^3/u L Nucleated RBC % (a uto) % Nucleated RBCs # /100WBC PT (12.1-14.9) SECO NDS INR (0.8-1.2) Sodium (136-145) mmol/L Potassium (3.5-5.1) mmol/L Chloride (98-107) mmol/L Carbon Dioxide (22-29) mmol/L Anion Gap (5-19) BUN (8-23) mg/dL Creatinine (0.5-0.9) mg/dL GFR Calculation Glucose (65-115) mg/dL Calculated Osmolal ity (285-295) mOsm/k g Lactic Acid (0.5-2.2) mmol/L Calcium (8.5-10.5) mg/dL Total Bilirubin (0.15-1.2) mg/dL AST (0-32) U/L ALT (0-33) U/L Alkaline Phosphata se (35-105) IU/L Troponin T Baselin e (0-10) ng/L Troponin T 120 Min wilton 32.36 H (0-10) ng/L Delta Troponin T -8.64 L (0-10) ABS# Total Protein (6.6-8.7) g/dL Albumin (3.5-5.2) g/dL Globulin (1.3-4.6) g/dL Lipase (13-60) U/L Urine Color Yellow (Yellow) Urine Appearance Cloudy (CLEAR) Urine pH 6 (5-7) Ur Specific Gravit y 1.020 (1.005-1.030) Urine Protein 1+ H (Negative) Urine Glucose (UA) Trace H (Normal) Urine Ketones 1+ H (Negative) Urine Blood Trace H (Negative) Urine Nitrate Negative (Negative) Urine Bilirubin Neg (Negative) Urine Urobilinogen Norm (Negative) mg/dL Ur Leukocyte Ayla ase Negative (Negative) Urine RBC 5-10 H (0-2) /hpf Urine WBC 0-4 H (0-5) /hpf Ur Squamous Epith Cells 25-40 H (0-5) /hpf Amorphous Sediment Not Reportable Urine Bacteria 1+ H (NONE) /hpf Urine Mucus 3+ /hpf Blood Type Rho(D) Type Antibody Screen Crossmatch EKG Data^: EKG 1: Attestation: I personally reviewed and interpreted this EKG as follows: EKG interpretation date: 01/10/21 EKG interpretation time: 07:45 Prior EKG tracings: available for review Interpretation: sinus with PACs, rate 98. ST depression lateral leads. rightward axis. Critical Care Time Critical Care Time: Critical Care Time: Yes Total Critical Care Time: 45 Attestation: This case had a high probability of a clinically significant, sudden, or life threatening deterioration of this patient's condition which required my full and direct attention, intervention and personal management. Discharge Plan Discharge Admit Provider: Adis Kwan Coding Level of Care Code ED Laser Beam Cutter for Chg Fwd Exam Comprehensive
[2021-01-10 07:55] LABS: Basophils % 0.4 %; Eosinophils % 0.1 %; Lymphocytes % 13.5 %; Mean Corpuscular HGB Conc 29.9 g/dL (30.0-36.0); Mean Corpuscular Hemoglobin 32.7 pg (28.0-34.0); Mean Corpuscular Volume 109.3 fL (81-99); Mean Platelet Volume 12.1 fL (7.4-10.4); Monocytes # 0.4 10^3/uL (0.2-0.9); Neutrophils # 5.63 10^3/uL (1.8-7.7); Neutrophils % 80.1 %; Nucleated Red Blood Cells % 0 %; Platelet Count 179 10^3/cmm (130-400); Red Blood Count 1.62 10^6/uL (4.1-5.3); Red Cell Distribution Width 18.5 % (12.1-15.1)
[2021-01-10 07:57] LABS: Hematocrit 17.7 % (37.0-47.0); Hemoglobin 5.3 g/dL (11.5-15.3)
[2021-01-10 08:15] LABS: Alanine Aminotransferase 11 U/L (0-33); Albumin Level 2.6 g/dL (3.5-5.2); Alkaline Phosphatase 130 IU/L (35-105); Aspartate Amino Transferase 12 U/L (0-32); Blood Urea Nitrogen 30 mg/dL (8-23); Calcium 7.2 mg/dL (8.5-10.5); Carbon Dioxide 23 mmol/L (22-29); Chloride 112 mmol/L (98-107); Glucose 148 mg/dL (65-115); Lipase 19 U/L (13-60); Osmolality Calculated 305 mOsm/kg (285-295); Sodium 143 mmol/L (136-145); Total Bilirubin 0.2 mg/dL (0.15-1.2); Total Protein 4.6 g/dL (6.6-8.7)
[2021-01-10 08:17] LABS: Lactic Sepsis W/Reflex 1.8 mmol/L (0.5-2.2)
[2021-01-10 08:19] LABS: Troponin(5th) Baseline 41 ng/L (0-10)
[2021-01-10 08:29] LABS: Anion Gap 12.2 (5-19); Potassium 4.2 mmol/L (3.5-5.1)
[2021-01-10 08:36] LABS: INR 1.29 (0.8-1.2)
--- NOTE | 2021-01-10 08:56 | PC.NURSE ---
1st 350ml of emergent A positive blood done at 0839. line flushed with NS after. line remains patent.
--- NOTE | 2021-01-10 09:02 | PC.NURSE ---
unable to scan 1st 2 units of A positive blood that were given because they were given emergently. when trying to scan it in it shows that our start and finish times were before issue date. 1st unit of A positive blood infusion completely at 0839. 2nd unit of A positive blood started at 0842 and done at 0856.
--- NOTE | 2021-01-10 09:23 | ECG_ITS ---
[facility] Test Date: 2021-01-10 Pat Name: Linda Hughes Department: Room: Gender: Female Pilot: : 1945 Requested By: Day Russell Order Number: [id number] Tiana MD: Rene Smiley M.D. Measurements Intervals [place] Rate: 83 P: 66 [place]: 151 QRS: 14 QRSD: 102 T: 54 QT: 375 QTc: 442 Interpretive Statements SINUS RHYTHM POSSIBLE RIGHT VENTRICULAR CONDUCTION DELAY [RSR (QR) IN V1/V2] ST DEVIATION AND MODERATE T-WAVE ABNORMALITY, CONSIDER ANTERIOR ISCHEMIA [-0.1+ mV T WAVE IN V3/V4] Compared to ECG 01/10/2021 07:36:14 No significant changes Electronically Signed On 01-10-2021 20:42:48 CDT by Rene Smiley M.D. [email or web address] Work Studychildren's hospital [id number]
[2021-01-10 09:30] LABS: Add Urine Microscopic? YES; Bacteria Urine 1+ /hpf; Bilirubin Urine Neg (Negative); Blood Urine Trace (Negative); Glucose Urine UA Trace (Normal); Ketones Urine 1+ (Negative); Leukocyte Esterase Urine Negative (Negative); Mucus Urine 3+ /hpf; Nitrate Urine Negative (Negative); Protein Urine 1+ (Negative); Squamous Epithelial Cell Urine 25-40 /hpf (0-5); Urine Appearance Cloudy (CLEAR); Urine Color Yellow (Yellow); Urobilinogen Urine Norm (Negative); WBC Urine 0-4 /hpf (0-5); pH Urine 6 (5-7)
[2021-01-10 09:31] LABS: Add Urine Culture? No
[2021-01-10] MEDS: calcium gluconate 0.1 gm/mL 10% SDV 10mL 1 GM IVP (09:38)
[2021-01-10] MEDS: famotidine 20 mg/2 mL INJ 40 MG IVP (09:38)
--- NOTE | 2021-01-10 09:58 | XR_ITS ---
WS: [id number] Exam: XR chest 1V portable [id number] Date/Time of Exam: 01/10/2021 9:58 AM Reason For Exam: abdominal pain Comparison 05/18/2017. The lungs are fully inflated and clear. Normal heart size. No pleural effusions. The mediastinum and osseous thorax are unremarkable. Monitoring leads superimpose the chest. XR/XR chest 1V portable [id number] IMPRESSION: 1. No acute cardiopulmonary finding. No change.
[2021-01-10 10:08] LABS: Troponin 5 2HR 32.36 ng/L (0-10)
[2021-01-10] MEDS: pantoprazole 40 MG in sodium chloride 0.9% (plus) 100 ML 20 MG IV ×2 (10:29→15:31)
--- NOTE | 2021-01-10 11:18 | PM.HP ---
Providers/Chief Complaint Admitting Physician: Adis Kwan MD Primary Care Provider: Ramsey David MD Chief Complaint: LOWER GI BLEED/ HYPOTENSION History of Present Illness Linda Hughes is a 75 year old female who presents to the hospital from the nursing facility. There she was noted to have a large black bowel movement and was sent for recurrent GI bleed. She had recently been hospitalized for GI bleeding January 04 through January 06 and had an EGD which demonstrated gastritis and duodenitis. Nursing facility nurses report no other concerns prior to the incident which caused the transfer. After discharge from the hospital she was back to baseline and no obvious blood in stool. Baseline is significant memory impairment secondary to end-stage dementia, nonambulator, who requires help with feeding. While in the emergency department she had an episode of hematemesis and hematochezia. She has had no obvious abdominal pain. She has been given 2 units of FFP and 2 units of blood with orders for 2 more units. She has had a prior history of Covid and since has received the vaccine. Review of Systems General: Reports: ROS unobtainable due to mental status (Unable to obtain secondary to patient's underlying severe dementia) Medications/Allergies Home Medications Medication Instructions Recorded Confirmed Last Taken Type acetaminophen 500 mg tablet 500 mg PO Q4H PRN tab 02/14/20 01/10/21 Unknown History bismuth subsalicylate 262 mg/15 mL 524 mg PO Q30M PRN 02/14/20 01/10/21 Unknown History oral suspension cholecalciferol (vitamin D3) 1,250 1,250 mcg PO Q14D 02/14/20 01/10/21 01/01/21 History mcg (50,000 unit) capsule furosemide 40 mg tablet 40 mg PO DAILY@0800 02/14/20 01/10/21 01/09/21 History mecobalamin (vitamin B12) 1,000 1,000 mcg PO Q30D 02/14/20 01/10/21 01/05/21 History mcg chewable tablet melatonin 3 mg capsule 3 mg PO BEDTIME@1999 cap 02/14/20 01/10/21 01/09/21 History memantine 10 mg tablet 10 mg PO BID@0800,199902/14/20 01/10/21 01/09/21 History phenobarbital 64.8 mg tablet 64.8 mg PO TID 02/14/20 01/10/21 01/09/21 History potassium chloride 10 mEq 10 meq PO DAILY@0800 02/14/20 01/10/21 01/09/21 History capsule,extended release sertraline 50 mg tablet 50 mg PO DAILY@199902/14/20 01/10/21 01/09/21 History folic acid 1 mg PO BID@08,199901/04/21 01/10/21 01/09/21 History erythromycin 1 applic EYE-LEFT QID 10 Days g 01/06/21 01/10/21 01/09/21 Rx amoxicillin-pot clavulanate 1 tab PO BID@01/10/21 01/10/21 01/09/21 History [Augmentin] Allergies Allergy/AdvReac Type Severity Reaction Status Date / Time lamotrigine Allergy Unknown Verified 01/04/21 10:58 primidone Allergy Unknown Verified 01/04/21 10:58 PFSH Acute PFSH: Medical History Alzheimer's dementia Anemia requiring transfusions Asymptomatic COVID-19 virus infection Essential hypertension Incarcerated ventral hernia Melena NSAID long-term use Seizure disorder Upper gastrointestinal hemorrhage Surgical History Burn injury History of ankle surgery Left ankle fracture Status post wrist surgery Social History Smoking and tobacco status: never smoked Alcohol intake: never Supplemental PFSH Information: Family history unobtainable currently secondary to patient's significant dementia Vitals/I&O/Wt Last Vital Signs Temp 97.2 F L 01/10/21 10:10 Pulse 86 01/10/21 11:02 Resp 20 H 01/10/21 11:02 BP 71/58 01/10/21 11:02 Pulse Ox 100 01/10/21 11:02 01/09/21 01/10/21 01/10/21 22:59 06:59 14:59 Intake Total 0 / 0 Balance 0 / 0 Weight last 48 hrs Weight 87.18 kg Physical Exam Narrative: EXAM NARRATIVE: General exam demonstrates a pale hypotensive female who can open her eyes to verbal stimulus. HEENT: Pupils equally round. Oropharynx clear. Neck is supple no lymphadenopathy or thyromegaly Cardiovascular borderline tachycardic. Lungs clear Abdomen is soft. Positive bowel sounds. No apparent tenderness. Extremities no cyanosis clubbing or edema Urinary Catheter Management^: Beal: Cath Placed During This Visit: yes Urinary Catheter Date of Insertion: 01/10/21 Urinary Catheter Time of Insertion: 08:00 Data : 01/10/21 07:30 01/10/21 07:30 Other data: INR 1.29 Alk phos 130 rest of LFTs normal Troponin 41 with repeat 32 Albumin 2.6 Urinalysis 5-10 reds 0-4 whites A&P Assessment and plan (1) Upper gastrointestinal hemorrhage: Significant GI bleeding with hematemesis and hematochezia associated with hypotension and hemoglobin of 5.3. She recently had an EGD and had gastritis and duodenitis, with the most significant findings in her duodenum. I suspect her bleeding is from a duodenal ulcer. I have had extensive discussions with her family, power of ip technology transactions attorney secondary to her significant dementia. They do not want any other intervention including EGD, interventional radiology, or transfer. They do want to see if stabilization can occur, transfusion of blood, and ICU treatment. They do not want intubation or CPR. At this point after rechecking her she has now received 4 units of packed red blood cells and 2 units of FFP. Her systolic blood pressure is 90. I will hold off on any further fluids secondary to the significant volume she has already received I will check hemoglobin hematocrit and INR 30 minutes to 1 hour after her transfusion of her fourth unit is complete. Currently she is still on room air saturating 100% and does not seem fluid overloaded. Status: Acute (2) Anemia requiring transfusions: See above, acute blood loss anemia from massive GI hemorrhage Status: Acute (3) Hypotension: Hypotension is improved. She was as low as 47 on her systolic in the emergency department. Status: Acute (4) Alzheimer's dementia: Significant end-stage dementia, limiting her ability to have good quality of life. Family is aware of this and making decisions regarding this as above. Status: Acute Qualifiers: Alzheimer's disease onset: unspecified onset Dementia behavioral disturbance: without behavioral disturbance Qualified Code(s): G30.9 - Alzheimer's disease, unspecified; F02.80 - Dementia in other diseases classified elsewhere without behavioral disturbance Additional A&P Information Allow natural SCDs for DVT prophylaxis, anticoagulation contraindicated secondary to severe GI bleeding Attestations Medical Necessity Statement*: Will need greater than 2 midnight stay for evaluation and treatment of massive upper GI bleeding presumed duodenal ulcer. Time Spent in Patient Care: Greater than 35 minutes Critical Care Time: Critical Care Time (min): 65 Other Attestations: The high probability of a clinically significant, sudden or life threatening deterioration of the patient's [hematologic, gastrointestinal, cardiovascular] system(s) required my full and direct attention, intervention and personal management. The critical care time is as shown. This time is in addition to time spent performing any reported procedures but includes the following: [x] Data and vital sign review and interpretation [x] Patient assessment, examination and intervention [x] Documentation [x] Medication orders and management Coding Level of Care Code Acute Core Analyst for Yohan Youssef Diagnoses Upper gastrointestinal hemorrhage K92.2 Anemia requiring transfusions D64.9 Hypotension I95.9 Alzheimer's dementia G30.9; F02.80 Alzheimer's disease onset: unspecified onset Dementia behavioral disturbance: without behavioral disturbance
--- NOTE | 2021-01-10 13:06 | PC.NURSE ---
Pt. reveived from ED via stretcher. pt confused on admission with no family at bedside at this time. Pt/. VSS and protix gtt @8mg/hr. will monitor
--- NOTE | 2021-01-10 13:23 | ECG_ITS ---
[facility] Test Date: 2021-01-10 Pat Name: Linda Hughes Department: Room: ICU10 Gender: Female Nursery Rn: : 1945 Requested By: Day Russell Order Number: [id number] Reading MD: Rene Smiley M.D. Measurements Intervals [place] Rate: 77 P: 0 AL: 152 QRS: 6 QRSD: 102 T: 32 QT: 381 QTc: 431 Interpretive Statements SINUS RHYTHM POSSIBLE RIGHT VENTRICULAR CONDUCTION DELAY [RSR (QR) IN V1/V2] NONSPECIFIC ST & T-WAVE ABNORMALITY Compared to ECG 01/10/2021 09:43:41 Possible ischemia no longer present T-wave abnormality still present Electronically Signed On 01-10-2021 20:44:33 CDT by Rene Smiley M.D. [id number]
--- NOTE | 2021-01-10 14:38 | PC.NURSE ---
Spoke with Paras, RN in ER regarding pt.blood product orders. First three units completed while in ED but not completed by nurse due to EMR complications. spoke with Arlene in Blood bank also. will follow up with Paras to correct issues.
[2021-01-10] MEDS: sodium chloride 0.9% (100 ml) 100 ML 50 ML ×2 (15:32→16:47)
[2021-01-10 16:45] LABS: Basophils % 0.5 %; Eosinophils % 0.1 %; Hematocrit 25.5 % (37.0-47.0); Lymphocytes # 2.3 10^3/uL (0.8-4.8); Lymphocytes % 27.9 %; Mean Corpuscular HGB Conc 33.3 g/dL (30.0-36.0); Mean Corpuscular Volume 93.1 fL (81-99); Mean Platelet Volume 12.1 fL (7.4-10.4); Monocytes # 0.6 10^3/uL (0.2-0.9); Monocytes % 7.1 %; Neutrophils # 5.16 10^3/uL (1.8-7.7); Neutrophils % 63.5 %; Nucleated Red Blood Cells % 0.2 %; Platelet Count 132 10^3/cmm (130-400); Red Blood Count 2.74 10^6/uL (4.1-5.3); Red Cell Distribution Width 16.3 % (12.1-15.1); White Blood Count 8.1 10^3/uL (4.0-10.0)
[2021-01-10] MEDS: sodium chloride 0.9% 500 ML 999 ML IV (16:47)
[2021-01-10 16:52] LABS: Hemoglobin 8.5 g/dL (11.5-15.3)
[2021-01-10 17:25] LABS: Troponin 5 6HR 53.16 ng/L (0-10)
[2021-01-10] MEDS: LORazepam 2 mg/mL INJ 1 mL 1 MG IVP (19:25)
[2021-01-11 03:43] VITALS: PULSE 93; RESP 23; TEMP 36.4; O2SAT 97
--- NOTE | 2021-01-11 03:43 | PC.NURSE ---
unable to get bp on pt for the morning vitals.
[2021-01-11 04:46] VITALS: PULSE 0
[2021-01-11] MEDS: LORazepam 2 mg/mL INJ 1 mL 1 MG IVP (06:44)
--- NOTE | 2021-01-11 08:48 | P.PN_ITS ---
Subjective Subjective: Interval history: Linda appears comfortable. Family made her comfort yesterday. She continues to bleed. Some difficulty getting her blood pressure. Medications: Reviewed: Yes Vitals/I&O/Wt Last Vital Signs Temp 97.6 F 01/11/21 03:43 Pulse 0 L 01/11/21 04:46 Resp 23 H 01/11/21 03:43 BP 82/47 01/10/21 15:40 Pulse Ox 97 01/11/21 03:43 01/10/21 01/11/21 01/11/21 22:59 06:59 14:59 Intake Total 1473.667 / 1473.667 Output Total 0 / 0 Balance 1473.667 / 1473.667 0 / 1473.667 Weight last 48 hrs Weight 87.18 kg Physical Exam Narrative: EXAM NARRATIVE: Appears comfortable Cardiovascular regular rate and rhythm Lungs clear Abdomen positive bowel sounds Extremities no cyanosis clubbing, 1+ edema, cap refill brisk Urinary Catheter Management^: Beal: Cath Placed During This Visit: yes Reason for Continuing Indwelling Catheter: Hospice/Comfort/Palliative Care Urinary Catheter Date of Insertion: 01/10/21 Urinary Catheter Time of Insertion: 08:00 Data : 01/10/21 16:25 01/10/21 07:30 A&P Assessment and plan (1) Upper gastrointestinal hemorrhage: Significant GI bleeding with hematemesis and hematochezia. This has continued. Family has decided to proceed with comfort measures only. She appears comfortable currently. She recently had an EGD and had gastritis and duodenitis, with the most significant findings in her duodenum. I suspect her bleeding is from a duodenal ulcer. 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 They do not want any other intervention including EGD, interventional radiology, or transfer. She had received a total of 5 units of blood, 2 units of FFP prior to family making a decision to proceed with comfort only. During the course of discussion I offered them transfer back to the nursing facility for comfort measures but they are worried that may be imminent and would like to continue care here. Status: Acute (2) Anemia requiring transfusions: See above, acute blood loss anemia from massive GI hemorrhage Status: Acute (3) Hypotension: Hypotension, persistent with continued bleeding Status: Acute (4) Alzheimer's dementia: Significant end-stage dementia, limiting her ability to have good quality of life. Family is aware of this and making decisions regarding this as above. Status: Acute Qualifiers: Alzheimer's disease onset: unspecified onset Dementia behavioral disturbance: without behavioral disturbance Qualified Code(s): G30.9 - Alzheimer's disease, unspecified; F02.80 - Dementia in other diseases classified elsewhere without behavioral disturbance Additional A&P Information Allow natural SCDs for DVT prophylaxis, anticoagulation contraindicated secondary to severe GI bleeding Attestations Medical Necessity Statement*: Needs continued hospitalization to provide comfort care in this patient with end-stage dementia and massive GI bleeding. 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
--- NOTE | 2021-01-11 09:34 | PC.NURSE ---
this nurse and charge nurse to bedside, patient has no lung sounds or heart tones auscultated, physician notified. allowed family time with patient.
--- NOTE | 2021-01-11 09:40 | PC.NURSE ---
Verified time of with Ade Morales RN at 0934.
--- NOTE | 2021-01-11 09:59 | P.DES_ITS ---
Discharge Providers DDS Date of Admission: 01/10/21 10:19 Date Summary Completed: 01/11/21 Attending Provider at Admission: Adis Kwan MD Time of : :34 Attending Provider at Discharge: Adis Kwan MD Primary Care Provider: Ramsey David MD DS Diagnoses Hospital Diagnoses (1) Upper gastrointestinal hemorrhage: (2) Anemia requiring transfusions: (3) Hypotension: (4) Alzheimer's dementia: Qualifiers: Alzheimer's disease onset: unspecified onset Dementia behavioral disturbance: without behavioral disturbance Qualified Code(s): G30.9 - Alzheimer's disease, unspecified; F02.80 - Dementia in other diseases classified elsewhere without behavioral disturbance Reason for Visit Reason for Visit: LOWER GI BLEED/ HYPOTENSION Summary Date and Time of Date of : 01/11/21 Time of : :34 Summary Summary: Linda is a 75-year-old female with end-stage dementia who presented to the hospital with hematemesis and hematochezia from severe GI bleeding. Resuscitation was attempted in the emergency department by giving 2 units of FFP and blood. She ultimately received 5 units of packed red blood cells. Initial hemoglobin was 5.3. She was transferred to the ICU where continued resuscitation occurred. Secondary to continued severe bleeding, and patient's underlying quality of life with severe dementia family decided to change to comfort measures. They did not want any procedures from the onset of this occurrence, and upon decision to make patient only comfort did not want any further blood products or medications other than those for comfort. Patient was transferred to a regular floor where privacy could occur for the family and she at 0934 in the morning on January 11, 2021. Additional Data Autopsy requested?: No Discharge Plan Discharge Patient Disposition: Condition: Stable Prescriptions: No Action potassium chloride 10 mEq capsule, extended release 10 meq PO DAILY@0800 RF: 0 furosemide [Lasix] 40 mg tablet 40 mg PO DAILY@0800 RF: 0 memantine [Namenda] 10 mg tablet 10 mg PO BID@799,1999 RF: 0 acetaminophen [Tylenol Extra Strength] 500 mg tablet 500 mg PO Q4H PRN (Reason: Pain) RF: 0 phenobarbital 64.8 mg tablet 64.8 mg PO TID RF: 0 sertraline [Zoloft] 50 mg tablet 50 mg PO DAILY@1999 RF: 0 melatonin 3 mg capsule 3 mg PO BEDTIME@1999 RF: 0 cholecalciferol (vitamin D3) 1,250 mcg (50,000 unit) capsule 1,250 mcg PO Q14D RF: 0 mecobalamin (vitamin B12) 1,000 mcg tablet,chewable 1,000 mcg PO Q30D RF: 0 bismuth subsalicylate [Bismatrol] 262 mg/15 mL suspension 524 mg PO Q30M PRN (Reason: Nausea) RF: 0 folic acid 1 mg Tablet 1 mg PO BID@ RF: 0 erythromycin 5 mg/gram (0.5 %) Ointment 1 applic eye-left QID 10 Days RF: 0 amoxicillin-pot clavulanate [Augmentin] 500-125 mg tablet 1 tab PO BID@ RF: 0 Referrals: Ramsey David MD [Primary Care Provider] - DS Attestations Time Spent in /Discharge Care*: greater than 30 min Quality - AMI: AMI present?: No Quality - Stroke: CVA present?: No Symptom Onset Unknown: No Quality - VTE: VTE present?: No Deep Vein Thrombosis/Pulmonary Embolism Present on Admission: No Coding Level of Care Code 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
--- NOTE | 2021-01-11 10:12 | PC.NURSE ---
Contacted [facility] and pt was released.
--- NOTE | 2021-01-11 11:31 | PC.NURSE ---
completed post mortem care, iv's removed and intact, nascimento discontinued.
--- NOTE | 2021-01-11 12:41 | PC.CHAP ---
Pastoral Care Encounter/Spiritual Assessment Type of Contact [] Declined newspaper correspondent visit [] Patient/Family/Request visit [] Outpatient visit [] Follow-up visit [] Physician referral [] Code/Alert [] Routine visit [] Staff referral [] Actively dying [] Patient sleeping [] Family support [xx] [] Out of room [] Palliative care [] [] Receiving care in room [] Pre-surgical visit [] Trauma [] Long length of stay [] ICU visit [] Other: Relational/Emotional Strength [] Patient feels connected with others/family/visitors/staff [] Distress [] Loneliness/isolation [] Abandonment Spirituality of Patient [] Person of Lou [] Attends Taoism of their Lou [] Believes in Prayer [] Reads Bible or Latter-Day materials [] There are Spiritual issues to be addressed Integrated Pest Management Technician Interventions [] Prayer [] Active listening [] Non-anxious presence [] Spiritual/emotional support [] Crisis/trauma care [] Spiritual counseling [] Bereavement support [] Provided bereavement packet [] Provided Bible/devotional materials [] Provided toy/stuffed animal, coloring book to patient or family member [] Provided Communion [] Anointing/[place] [] Salvation [] Completed spiritual assessment [] Other: Impact on Illness or Injury [] Angry [] Fearful [] Anxious [] Often cries [] Exhaustion [] Unable to work [] Unable to attend pentecostalism [] Unable to walk/stand [] Unable to read [] Unable to drive [] Unable to eat/drink [] Unable to sleep [] Unable to be with family [] Patient intubated [] Other: Summary Patient . Family had left. Awaiting mortuary to arrive for body. Time spent with patient
--- NOTE | 2021-01-11 14:10 | PC.PHAR ---
morphine returned to pharmacy: nursing had removed dose with integrated waste before patient had . Since nursing had not opened vial instructed to waste remainder to remove dispense from machine and return vial to pharmacist: dave brennan. med returned to safe vial lockup.
== END 2021-01-11 13:22 | disposition expired | DRG 811 ==
LOC: ER 07:56 → ICU 10:55 → MEDSURG 18:46
PROVIDERS: Admitting Provider Internal Medicine; Emergency Provider Emergency Medicine; PCP Internal Medicine; Visit Provider Internal Medicine
DX: D62 Acute posthemorrhagic anemia (principal); K26.4 Chronic or unspecified duodenal ulcer with hemorrhage; K43.6 Other and unspecified ventral hernia with obstruction, without gangrene; G30.9 Alzheimer's disease, unspecified; F02.80 Dementia in other diseases classified elsewhere, unspecified severity, without behavioral disturbance, psychotic disturbance, mood disturbance, and anxiety; Z86.16 Personal history of COVID-19; I10 Essential (primary) hypertension; G40.909 Epilepsy, unspecified, not intractable, without status epilepticus; I95.9 Hypotension, unspecified; Z51.5 Encounter for palliative care
CPT/HCPCS: 36415; 36430; 51702; 71045; 80053; 81001; 83605; 83690; 84484; 85025; 85610; 86850; 86900; 86920; 86927; 93005; 99291; 99292; C9113; J0610; J2060; J3490; J7040; P9016; P9017